=== PATIENT | female | born 1980 | race Two or more races ===

== ENCOUNTER 2020-09-01 10:05 | Observation (INO) | payer MEDICAID, OTHER ==
[2020-09-01] MEDS ORDERED: PYRI1TAB10 PO (11:24)
[2020-09-01] MEDS ORDERED: PREN-96 PO (11:24)
[2020-09-01] MEDS ORDERED: FERR-20 PO (11:24)
[2020-09-01] MEDS ORDERED: CYA100I PO (11:24)
[2020-09-01] MEDS ORDERED: FOLI1TAB6 PO (11:24)
[2020-09-01] MEDS ORDERED: CHOL400C15 PO (11:24)
== END 2020-09-01 11:20 | disposition home or self-care (01) ==
LOC: LDRP 10:05
PROVIDERS: ADMIT Specialist; ATTEND Specialist
DX: O26.852 Spotting complicating pregnancy, second trimester (principal); Z3A.20 20 weeks gestation of pregnancy
CPT/HCPCS: 59025; 81002; G0378

== ENCOUNTER 2020-09-26 19:38 | Observation (INO) | payer MEDICAID ==
[~2020-09-26 19:38] MED LIST: CHOL400C15 PO; CYA100I PO; FERR-20 PO; FOLI1TAB6 PO; PREN-96 PO; PYRI1TAB10 PO
== END 2020-09-26 20:52 | disposition home or self-care (01) ==
LOC: UNDOADMOB 19:38 → LDRP 19:38 → UNDODISOB 20:52
PROVIDERS: ADMIT Obstetrics & Gynecology; ATTEND Obstetrics & Gynecology
DX: O99.893 Other specified diseases and conditions complicating puerperium (principal); M54.9 Dorsalgia, unspecified; O46.93 Antepartum hemorrhage, unspecified, third trimester; O26.893 Other specified pregnancy related conditions, third trimester; R51.9 Headache, unspecified; Z3A.24 24 weeks gestation of pregnancy
CPT/HCPCS: 59025; 76815; 81002; G0378

== ENCOUNTER 2020-11-16 18:43 | Observation (INO) | payer MEDICAID ==
[~2020-11-16] VITALS: Ht 198.1 cm; Wt 81.6 kg
[2020-11-16] MEDS ORDERED: LACTATED RINGER'S 1,000 ML IV ONE (22:18)
[2020-11-16] MEDS ORDERED: TERBUTALINE SULFATE 1 MG/ML 1ML VIAL SC ONE (22:20)
[2020-11-18] MEDS ORDERED: NIF10C PO ×2 (09:28)
== END 2020-11-17 00:02 | disposition home or self-care (01) ==
LOC: LDRP 18:43
PROVIDERS: ADMIT Obstetrics & Gynecology; ATTEND Obstetrics & Gynecology
DX: O62.9 Abnormality of forces of labor, unspecified (principal); O26.893 Other specified pregnancy related conditions, third trimester; N89.8 Other specified noninflammatory disorders of vagina; O21.2 Late vomiting of pregnancy; Z3A.31 31 weeks gestation of pregnancy
CPT/HCPCS: 59025; 76805; 81002; 96360; 96372; G0378; J3105; 96365

== ENCOUNTER 2020-11-18 07:55 | Observation (INO) | payer MEDICAID ==
[2020-11-18] MEDS ORDERED: NIFEdipine 10 MG CAP PO ONE (09:00)
[2020-11-18] MEDS ORDERED: NIF10C PO ×2 (09:28)
== END 2020-11-18 09:40 | disposition home or self-care (01) ==
LOC: LDRP 07:55
PROVIDERS: ADMIT Specialist; ATTEND Specialist
DX: O60.03 Preterm labor without delivery, third trimester (principal); Z3A.31 31 weeks gestation of pregnancy
CPT/HCPCS: 59025; 81002; G0378

== ENCOUNTER 2020-11-20 08:50 | Observation (INO) | payer MEDICAID ==
[~2020-11-20] VITALS: Ht 167.6 cm; Wt 81.6 kg
[~2020-11-20 08:50] MED LIST changes: +NIF10C PO
== END 2020-11-20 09:50 | disposition home or self-care (01) ==
LOC: LDRP 08:50
PROVIDERS: ADMIT Specialist; ATTEND Specialist
DX: O60.03 Preterm labor without delivery, third trimester (principal); O09.523 Supervision of elderly multigravida, third trimester; O26.893 Other specified pregnancy related conditions, third trimester; R51.9 Headache, unspecified; R11.0 Nausea; Z3A.32 32 weeks gestation of pregnancy
CPT/HCPCS: 59025; 81002; G0378

== ENCOUNTER 2020-11-25 07:55 | Observation (INO) | payer MEDICAID ==
[~2020-11-25] VITALS: Ht 167.6 cm; Wt 81.6 kg
[2020-11-25] MEDS ORDERED: NIFEdipine 10 MG CAP ONE (08:34)
[2020-11-25] MEDS ORDERED: NIFEdipine 10 MG CAP PO ONE ×2 (08:45→09:10)
== END 2020-11-25 08:55 | disposition home or self-care (01) ==
LOC: UNDOADMOB 07:55 → LDRP 07:55 → UNDODISOB 08:55
PROVIDERS: ADMIT Obstetrics & Gynecology; ATTEND Obstetrics & Gynecology
DX: O60.03 Preterm labor without delivery, third trimester (principal); Z3A.32 32 weeks gestation of pregnancy
CPT/HCPCS: 59025; 81002; G0378

== ENCOUNTER 2020-11-29 08:24 | Observation (INO) | payer MEDICAID | END 2020-11-29 09:50 | disposition home or self-care (01) | LOC: LDRP 08:24 | PROVIDERS: ADMIT Obstetrics & Gynecology; ATTEND Obstetrics & Gynecology | DX: O60.03 Preterm labor without delivery, third trimester (principal); Z3A.33 33 weeks gestation of pregnancy | CPT/HCPCS: 59025; 76818; 81002; G0378 ==

== ENCOUNTER 2020-12-08 10:04 | Observation (INO) | payer MEDICAID ==
[2020-12-08] MEDS ORDERED: LEVO50TA7 PO (11:20)
== END 2020-12-08 11:35 | disposition home or self-care (01) ==
LOC: LDRP 10:04
PROVIDERS: ADMIT Obstetrics & Gynecology; ATTEND Obstetrics & Gynecology
DX: O60.03 Preterm labor without delivery, third trimester (principal); Z3A.34 34 weeks gestation of pregnancy
CPT/HCPCS: 59025; 76818; 81002; G0378

== ENCOUNTER 2020-12-11 08:00 | Observation (INO) | payer MEDICAID ==
[~2020-12-11] VITALS: Ht 167.6 cm; Wt 81.6 kg
[~2020-12-11 08:00] MED LIST changes: -FERR-20 PO; +LEVO50TA7 PO; -PYRI1TAB10 PO
== END 2020-12-11 10:45 | disposition home or self-care (01) ==
LOC: LDRP 08:00
PROVIDERS: ADMIT Obstetrics & Gynecology; ATTEND Obstetrics & Gynecology
DX: O60.03 Preterm labor without delivery, third trimester (principal); O26.893 Other specified pregnancy related conditions, third trimester; E03.9 Hypothyroidism, unspecified; Z3A.34 34 weeks gestation of pregnancy
CPT/HCPCS: 59025; 76818; 81002; G0378

== ENCOUNTER 2020-12-16 08:25 | Observation (INO) | payer MEDICAID | END 2020-12-16 10:00 | disposition home or self-care (01) | LOC: LDRP 08:25 | PROVIDERS: ADMIT Specialist; ATTEND Specialist | DX: O99.283 Endocrine, nutritional and metabolic diseases complicating pregnancy, third trimester (principal); E03.9 Hypothyroidism, unspecified; O36.5930 Maternal care for other known or suspected poor fetal growth, third trimester, not applicable or unspecified; O09.523 Supervision of elderly multigravida, third trimester; O60.03 Preterm labor without delivery, third trimester; Z3A.35 35 weeks gestation of pregnancy | CPT/HCPCS: 59025; 76818; 81002; G0378 ==

== ENCOUNTER 2020-12-20 07:53 | Observation (INO) | payer MEDICAID | END 2020-12-20 09:32 | disposition home or self-care (01) | LOC: LDRP 07:53 | PROVIDERS: ADMIT Specialist; ATTEND Specialist | DX: O99.283 Endocrine, nutritional and metabolic diseases complicating pregnancy, third trimester (principal); E03.9 Hypothyroidism, unspecified; O60.03 Preterm labor without delivery, third trimester; O09.523 Supervision of elderly multigravida, third trimester; Z3A.36 36 weeks gestation of pregnancy | CPT/HCPCS: 59025; 76818; 81002; G0378 ==

== ENCOUNTER 2020-12-23 09:05 | Observation (INO) | payer MEDICAID | END 2020-12-23 10:59 | disposition home or self-care (01) | LOC: LDRP 09:05 | PROVIDERS: ADMIT Obstetrics & Gynecology; ATTEND Obstetrics & Gynecology | DX: O60.03 Preterm labor without delivery, third trimester (principal); O09.523 Supervision of elderly multigravida, third trimester; O99.283 Endocrine, nutritional and metabolic diseases complicating pregnancy, third trimester; E03.9 Hypothyroidism, unspecified; Z79.899 Other long term (current) drug therapy | CPT/HCPCS: 59025; 76818; 81002; G0378 ==

== ENCOUNTER 2020-12-26 08:23 | Observation (INO) | payer MEDICAID | END 2020-12-26 09:50 | disposition home or self-care (01) | LOC: LDRP 08:23 | PROVIDERS: ADMIT Specialist; ATTEND Specialist | DX: O99.283 Endocrine, nutritional and metabolic diseases complicating pregnancy, third trimester (principal); O09.523 Supervision of elderly multigravida, third trimester; E03.9 Hypothyroidism, unspecified; Z3A.37 37 weeks gestation of pregnancy | CPT/HCPCS: 59025; 76818; 81002; 84112; G0378; Q0114 ==

== ENCOUNTER 2021-01-02 09:00 | Observation (INO) | payer MEDICAID ==
[~2021-01-02 09:00] MED LIST changes: -NIF10C PO
== END 2021-01-02 11:06 | disposition home or self-care (01) ==
LOC: LDRP 09:00
PROVIDERS: ADMIT Obstetrics & Gynecology; ATTEND Obstetrics & Gynecology
DX: O99.283 Endocrine, nutritional and metabolic diseases complicating pregnancy, third trimester (principal); E03.9 Hypothyroidism, unspecified; O60.03 Preterm labor without delivery, third trimester; Z3A.38 38 weeks gestation of pregnancy
CPT/HCPCS: 59025; 76818; 81002; G0378

== ENCOUNTER 2021-01-06 08:56 | Observation (INO) | payer MEDICAID ==
[~2021-01-06] VITALS: Ht 167.6 cm; Wt 87.1 kg
== END 2021-01-06 11:22 | disposition home or self-care (01) ==
LOC: LDRP 08:56
PROVIDERS: ADMIT Obstetrics & Gynecology; ATTEND Obstetrics & Gynecology
DX: O99.283 Endocrine, nutritional and metabolic diseases complicating pregnancy, third trimester (principal); E03.9 Hypothyroidism, unspecified; O09.513 Supervision of elderly primigravida, third trimester; O26.893 Other specified pregnancy related conditions, third trimester; R51.9 Headache, unspecified; R19.7 Diarrhea, unspecified; R11.0 Nausea; Z3A.38 38 weeks gestation of pregnancy; Z79.899 Other long term (current) drug therapy
CPT/HCPCS: 59025; 76818; 81002; G0378

== ENCOUNTER 2021-01-07 08:27 | Observation (INO) | payer MEDICAID | END 2021-01-07 10:41 | disposition home or self-care (01) | LOC: LDRP 08:27 | PROVIDERS: ADMIT Specialist; ATTEND Specialist | DX: O99.283 Endocrine, nutritional and metabolic diseases complicating pregnancy, third trimester (principal); E03.9 Hypothyroidism, unspecified; O62.9 Abnormality of forces of labor, unspecified; Z3A.38 38 weeks gestation of pregnancy | CPT/HCPCS: 59025; 76818; 81002; 84112; G0378; Q0114 ==

== ENCOUNTER 2021-01-11 08:40 | Observation (INO) | payer MEDICAID ==
[~2021-01-11] VITALS: Ht 170.2 cm; Wt 83.9 kg
== END 2021-01-11 10:00 | disposition home or self-care (01) ==
LOC: LDRP 08:40
PROVIDERS: ADMIT Specialist; ATTEND Specialist
DX: O09.523 Supervision of elderly multigravida, third trimester (principal); O99.283 Endocrine, nutritional and metabolic diseases complicating pregnancy, third trimester; E03.9 Hypothyroidism, unspecified; O62.9 Abnormality of forces of labor, unspecified; O26.893 Other specified pregnancy related conditions, third trimester; R10.30 Lower abdominal pain, unspecified; Z3A.39 39 weeks gestation of pregnancy
CPT/HCPCS: 59025; 76818; 81002; G0378

== ENCOUNTER 2021-01-14 04:48 | Inpatient (IN) | payer MEDICAID ==
[~2021-01-14] VITALS: Ht 167.6 cm; Wt 83.0 kg
[2021-01-14] MEDS ORDERED: LACT. RINGERS/OXYTOCIN 20UNITS 1,000 ML IV ONE ×3 (05:00→23:00)
[2021-01-14] MEDS ORDERED: miSOPROStol 50 MCG per PRE-CUT 1/2 TAB PO PRN (05:00)
[2021-01-14] MEDS ORDERED: LIDOCAINE 2%HCL (LOCAL ANESTH.) INJ 20ML MDV IJ ONE (05:00)
[2021-01-14 06:00] LABS: Basophils # (auto) 0.1 10 ^3/uL (0-0.2); Basophils % (auto) 0.8 % (0.0-2.0); Eosinophils # (auto) 0.3 10 ^3/uL (0-0.8); Hematocrit 37.3 % (36.0-46.0); Hemoglobin 12.9 g/dL (12.2-16.2); Lymphocytes # (auto) 1.2 10 ^3/uL (0.4-5.4); Lymphocytes % (auto) 18.4 % (10.0-50.0); Mean Corpuscular Hemoglobin 30.4 pg (28.0-32.0); Mean Corpuscular Hgb Conc. 34.5 g/dL (32.0-36.0); Mean Corpuscular Volume 88.1 fL (80.0-100.0); Monocytes # (auto) 0.7 10 ^3/uL (0-1.3); Monocytes % (auto) 11.3 % (0.0-12.0); Neutrophils # (auto) 4.3 10 ^3/uL (1.6-8.6); Neutrophils % (auto) 65.5 % (37.0-80.0); Nucleated Red Blood Cells % 0.1 %; Platelet Count (auto) 170 10^3/uL (140-450); Red Blood Cells 4.23 10^6/uL (4.0-5.20); Red Cell Distribution Width 13.7 % (11.8-14.3); White Blood Cell 6.6 10^3/uL (4.4-10.8)
[2021-01-14] MEDS: LACTATED RINGER'S 1,000 ML IV SCH ×2 (06:02→12:34)
[2021-01-14 06:09] LABS: Albumin 2.6 g/dL (3.4-5.0); BUN/Creatinine Ratio 19.6; Calcium 8.4 mg/dL (8.5-10.1); Potassium 3.5 mmol/L (3.5-5.1)
[2021-01-14 06:11] LABS: Alcohol, Urine < 3.0 mg/dL (0-10); Amphetamine Screen, Urine NEGATIVE (NEGATIVE); Barbiturate Scree,Urine NEGATIVE (NEGATIVE); Benzodiazephine Screen, Urine NEGATIVE (NEGATIVE); Cannabinoid Screen, Urine NEGATIVE (NEGATIVE); Cocaine Screen, Urine NEGATIVE (NEGATIVE); Opiate Scree,Urine NEGATIVE (NEGATIVE); Phencyclidine Screen, Urine NEGATIVE (NEGATIVE)
[2021-01-14 06:22] LABS: INR 0.97 (0.9-1.15); Partial Thromboplastin Time 26.8 sec (23.0-31.2)
[2021-01-14 06:23] LABS: Bilirubin, Total 0.3 mg/dL (0.2-1.0); Total Protein 6.6 g/dL (6.4-8.2)
[2021-01-14 06:28] LABS: Urine Bacteria FEW /hpf (None Seen); Urine Blood Negative /uL (Negative); Urine Mucus FEW (None Seen); Urine WBC 67 /hpf (0 - 5)
[2021-01-14] MEDS ORDERED: miSOPROStol 100 mcg TAB PR PRN (09:00)
[2021-01-14] MEDS ORDERED: CARBOPROST TROMETHAMINE 250 MCG/1ML VIAL IM PRN (09:00)
[2021-01-14] MEDS ORDERED: miSOPROStol 100 mcg TAB SL PRN (09:00)
[2021-01-14] MEDS ORDERED: METHYLERGONOVINE MALEATE 0.2 MG/ML AMP IM PRN (09:00)
[2021-01-14] MEDS ORDERED: DIPHENOXYLATE W/ATROPINE 2.5 MG TAB PO SCH (10:00)
[2021-01-14] MEDS ORDERED: TERBUTALINE SULFATE 1 MG/ML 1ML VIAL SC ONE (10:45)
[2021-01-14] MEDS ORDERED: LACT. RINGERS/OXYTOCIN 20UNITS 1,000 ML IV SCH (10:45)
[2021-01-14] MEDS: DERMOPLAST 60ML BOTTLE TOP PRN ×2 (10:49→21:06)
[2021-01-14] MEDS: PHISODERM TOP SOLN 240ML BTL TOP PRN ×2 (10:49→21:05)
[2021-01-14] MEDS: WITCH HAZEL-GLYCERIN PAD TOP PRN ×2 (10:49→21:05)
[2021-01-14] MEDS ORDERED: ACETAMINOPHEN 325 MG TAB PO PRN (23:00)
[2021-01-14] MEDS: IBUPROFEN 600 MG TAB PO PRN (23:31)
[2021-01-15 02:50] VITALS: BP 95/58
[2021-01-15 06:50] VITALS: BP 101/63
[2021-01-15] MEDS: IBUPROFEN 600 MG TAB PO PRN ×2 (08:48→22:44)
[2021-01-15 11:00] VITALS: BP 106/63
[2021-01-15 15:20] VITALS: BP 115/58
[2021-01-15 19:05] VITALS: BP 98/53
[2021-01-15 23:00] VITALS: BP 105/59
[2021-01-16 03:00] VITALS: BP 97/58
[2021-01-16] MEDS: IBUPROFEN 600 MG TAB PO PRN ×2 (07:08→12:27)
[2021-01-16 07:30] VITALS: BP 98/59
[2021-01-16 08:06] LABS: RPR Non Reactive (Non Reactive)
[2021-01-16 11:20] VITALS: BP 90/54
== END 2021-01-16 13:12 | disposition home or self-care (01) | DRG 560 ==
LOC: LDRP 04:48
PROVIDERS: ADMIT Specialist; ATTEND Specialist
PROC: 10E0XZZ Delivery of Products of Conception, External Approach (ICD-10-PCS; principal; 2021-01-14)
PROC: 0HQ9XZZ Repair Perineum Skin, External Approach (ICD-10-PCS; 2021-01-14)
DX: O66.0 Obstructed labor due to shoulder dystocia (principal); O99.284 Endocrine, nutritional and metabolic diseases complicating childbirth; Z20.822 Contact with and (suspected) exposure to COVID-19; O70.0 First degree perineal laceration during delivery; Z3A.39 39 weeks gestation of pregnancy; Z37.0 Single live birth; E03.9 Hypothyroidism, unspecified
CPT/HCPCS: 36415; 59025; 59409; 80053; 80307; 81001; 85025; 85610; 85730; 86592; 86850; 86900; 86901; 87426; 96360; 96361; 96365; 96366; G0378; J2590

== ENCOUNTER 2025-05-07 11:13 | Emergency (ER) | payer SELFPAY ==
[~2025-05-07] VITALS: Ht 167.6 cm; Wt 66.3 kg
[~2025-05-07 11:13] MED LIST changes: -CHOL400C15 PO; -CYA100I PO; -FOLI1TAB6 PO; -PREN-96 PO
--- NOTE | 2025-05-07 11:44 | ED.PDOC ---
HPI (NEURO) HPI Comments This is a 45 year old female presenting to the ED with chief complaint of left sided weakness. Patient reports that her father recently and was buried 2 days ago. Patient relays that she started to experiencing bilateral numbness and weakness since 12pm yesterday, but her right side resolved, leaving only the left numb and weak. Patient states that she is unable to walk on her own and cannot lift up her left arm due to the weakness. Patient denies any N/V/D, headache, syncope, chest pain, SOB, or blurred vision. Time Seen by MD: 11:36 Reviewed Notes: Nurses Notes, Medications, Allergies Information Source: Patient Mode of Arrival: Ambulatory Severity: Moderate Dizziness/Weakness Severity: Unable to do activities Timing: Hours Duration: Since onset Prehospital treatment: None Weakness Location: (L) Sided Numbness Location: (L) Sided Onset: At rest Circumstances: Recent stress Symptoms: Weakness, Numbness Past Medical History PAST MEDICAL HISTORY: Thyroid Surgical History: Denies all surgeries OIL BURNER MECHANIC History: No Pertinent OIL BURNER MECHANIC History Family History Family History: Reviewed,noncontributory to illness Social History Smoker: Non-Smoker Alcohol: Denies ETOH Use Drugs: Denies Drug Use Lives In: Home Constitutional: denies: chills, diaphoresis, fatigue, fever, malaise, sweats, weakness, others EENTM: denies: blurred vision, double vision, ear bleeding, ear discharge, ear drainage, ear pain, ear ringing, eye pain, eye redness, hearing loss, mouth pain, mouth swelling, nasal discharge, nose bleeding, nose congestion, nose pain , photophobia, tearing, throat pain, throat swelling, voice changes, others Respiratory: denies: cough, hemoptysis, orthopnea, SOB at rest, shortness of breath, SOB with excertion, stridor, wheezing, others Cardiovascular: denies: chest pain, dizzy spells, diaphoresis, Dyspnea on exertion, edema, irregular heart beat, left arm pain, lightheadedness, palpitations, PND, syncope, others Gastrointestinal: denies: abdomen distended, abdominal pain, blood streaked bowels, constipated, diarrhea, dysphagia, difficulty swallowing, hematemesis, melena, nausea, poor appetite, poor fluid intake, rectal bleeding, rectal pain, vomiting, others Genitourinary: denies: abnormal vagina bleeding, burning, dyspareunia, dysuria, flank pain, frequency, hematuria, incontinence, pain, , vagina discharge, urgency, others Neurological: reports: left sided numbness, left sided weakness; denies: dizziness, fainting, headache, numbness, paresthesia, pre-existing deficit, right sided numbness, right sided weakness, seizure, speech problems, tingling, tremors, weakness, others Musculoskeletal: denies: back pain, gout, joint pain, joint swelling, muscle pain, muscle stiffness, neck pain, others Integumetry: denies: bruises, change in color, change in hair/nails, dryness, laceration, lesions, lumps, rash, wounds, others Allergic/Immunocompromised: denies: Difficulty Healing, Frequent Infections, Hives, Itching, others Hematologic/Lymphatic: denies: anemia, blood clots, easy bleeding, easy bruising, swollen glands, others Endocrine: denies: excessive hunger, excessive sweating, excessive thirst, excessive urination, flushing, intolerance to cold, intolerance to heat, unexplained weight gain, unexplained weight loss, others Psychiatric: denies: anxiety, bipolar disorder, depression, hopeless, panic disorder, schizophrenia, sleepless, suicidal, others All Other Systems: Reviewed and Negative Physical Exam General Appearance: No Apparent Distress, Normal HEENT: Normal ENT Inspection, Pharynx Normal, TMs Normal Neck: Full Range of Motion, Non-Tender, Normal, Normal Inspection Respiratory: Chest Non-Tender, Lungs Clear, No Accessory Muscle Use, No Respiratory Distress, Normal Breath Sounds Cardiovascular: No Edema, No Murmur, No Gallop, Normal Peripheral Pulses, Regular Rate/Rhythm Breast Exam: Deferred Gastrointestinal: No Organomegaly, Non Tender, No Pulsatile Mass, Normal Bowel Sounds, Soft Genitalia: Deferred Pelvic: Deferred Rectal: Deferred Extremities: No calf tenderness, Normal capillary refill, Normal inspection, Normal range of motion, Non-tender, No pedal edema Musculoskeletal : Apperance: Normal Neurologic: Alert, carpet measurer II-XII nml as Tested, No Motor Deficits, Normal Affect, Normal Mood, No Sensory Deficits, Other (Drop test noted avoidance of the top of her head and arm comfortably landing in lap.) Cerebellar Function: NOT DONE Reflexes: NOT DONE Skin: Dry, Normal Color, Warm Lymphatic: NOT DONE Was a procedure done? Was a procedure done?: No X-Ray, Labs, Meds, VS Vital Signs Date Time Temp Pulse Resp B/P (MAP) Pulse Ox O2 Delivery O2 Flow Rate FiO2 05/07/25 11:27 98.2 122 20 125/88 (100) 98 98.2 Lab Test 05/07/25 11:57 05/07/25 11:56 05/07/25 11:35 05/07/25 11:31 Range/Units Urine Opiates Screen Neg NEGATIVE Urine Fentanyl Screen Neg NEGATIVE Urine Barbiturates Screen Neg NEGATIVE Urine Phencyclidine Screen Neg NEGATIVE Urine Amphetamines Screen Neg NEGATIVE Urine Benzodiazepines Screen Neg NEGATIVE Urine Cocaine Screen Neg NEGATIVE Urine Cannabinoids Screen Neg NEGATIVE White Blood Count 5.3 4.4-10.8 10^3/uL Red Blood Count 4.88 4.0-5.20 10^6/uL Hemoglobin 14.7 12.2-16.2 g/dL Hematocrit 43.5 36.0-46.0 % Mean Corpuscular Volume 89.1 80.0-100.0 fL Mean Corpuscular Hemoglobin 30.2 28.0-32.0 pg Mean Corpuscular Hemoglobin Concent 33.9 32.0-36.0 g/dL Red Cell Distribution Width 16.6 H 11.8-14.3 % Platelet Count 331 140-450 10^3/uL Mean Platelet Volume 8.2 6.9-10.8 fL Neutrophils (%) (Auto) 51.9 37.0-80.0 % Lymphocytes (%) (Auto) 32.9 10.0-50.0 % Monocytes (%) (Auto) 7.6 0.0-12.0 % Eosinophils (%) (Auto) 6.4 0.0-7.0 % Basophils (%) (Auto) 1.2 0.0-2.0 % Neutrophils # (Auto) 2.7 1.6-8.6 10 ^3/uL Lymphocytes # (Auto) 1.7 0.4-5.4 10 ^3/uL Monocytes # (Auto) 0.4 0-1.3 10 ^3/uL Eosinophils # (Auto) 0.3 0-0.8 10 ^3/uL Basophils # (Auto) 0.1 0-0.2 10 ^3/uL Nucleated Red Blood Cells 0.2 % Sodium Level 141 136-145 mmol/L Potassium Level 3.6 3.5-5.1 mmol/L Chloride Level 107 98-107 mmol/L Carbon Dioxide Level 22 20-31 mmol/L Anion Gap 12 5-15 Blood Urea Nitrogen 9 9-23 mg/dL Creatinine 0.68 0.550-1.02 mg/dL Glomerular Filtration Rate Calc 109 >90 mL/min BUN/Creatinine Ratio 13.2 10.0-20.0 Serum Glucose 78 74-106 mg/dL Calcium Level 9.3 8.7-10.4 mg/dL Total Bilirubin 0.4 0.2-1.0 mg/dL Aspartate Amino Transferase (AST) 20 13-40 U/L Alanine Aminotransferase (ALT) 13 7-40 U/L Alkaline Phosphatase 65 46-116 U/L Total Protein 6.7 5.7-8.2 g/dL Albumin 4.4 3.2-4.8 g/dL Thyroid Stimulating Hormone (TSH) 1.86 0.55-4.78 uIU/mL Beta HCG, Quantitative 0.4 L 1.5-4.2 mIU/mL Plasma/Serum Blood Alcohol 129.2 H <10 mg/dL Urine Color Light-yellow Yellow Urine Clarity Clear Clear Urine pH 5.0 5.0-9.0 Urine Specific [place] 1.013 1.001-1.035 Urine Protein Negative Negative Urine Ketones Negative Negative Urine Blood Negative Negative /uL Urine Nitrite Negative Negative Urine Bilirubin Negative Negative Urine Urobilinogen Normal Negative mg/dL Urine Leukocyte Esterase Negative Negative /uL Urine RBC <1 0 - 4 /hpf Urine Microscopic WBC 2 0-5 /HPF Urine Squamous Epithelial Cells Few <5 /hpf Urine Bacteria None seen None Seen /hpf Urine Glucose Normal Normal mg/dL POC Glucose 91 70-106 mg/dl Current Medications Medications (Trade) Dose Ordered Sig/Jenn Route Start Time Stop Time Status Last Admin Lorazepam (Ativan Inj) 1 mg ONCE ONCE IV 05/07/25 11:45 05/07/25 11:46 DC 05/07/25 11:55 X-Ray, Labs, Meds, VS Comment This 45-year-old female presents secondary to quit left-sided weakness. And she had facial symmetry. She is completely cognitively intact. During the drop test, the patient fail to hit her head, face and had her hand landing generally in her lab. The patient had intact sensation. She was given Ativan. Upon reassessment, her symptoms have resolved. As such, I believe her symptoms secondary to a stress reaction. I will discharge the patient with a vacation for Ativan. She is asked to follow up with the PCP in next 1 2 days return to the ER for new/worse/worsening symptoms. Additionally, she may consider relaxation techniques and other methods to help cope with her recent stressful event. Time of 1ST Reevaluation: 12:36 Reevaluation 1ST: Unchanged Patient Education/Counseling: Diagnosis, Treatment Family Education/Counseling: Diagnosis, Treatment Departure 1 Departure Time of Disposition: 14:42 Impression: Primary Impression: Anxiety Additional Impression: Stress reaction Disposition: 01 HOME / SELF CARE / HOMELESS Condition: Good Discharged With: Self, Spouse Critical Care Note Critical Care Time?: No Stability Stability form required: No Heart Score Heart Score: Heart Score Response (Comments) Value History N/A 0 EKG N/A 0 Age N/A 0 Risk Factors N/A 0 Troponin N/A 0 Total 0 I personally scribed for LATRICE CAMARA MD ([email or web address]) on 05/07/25 at 11:44. Electronically submitted by Efra Leung ([email or web address]). I personally scribed for LATRICE CAMARA MD ([email or web address]) on 05/07/25 at 11:45. Electronically submitted by Efra Leung ([email or web address]). LATRICE CAMARA MD May 07, 2025 11:44
[2025-05-07] MEDS: LORazepam 2MG/ML-1ML VIAL IV ONE (11:55)
[2025-05-07 12:18] LABS: Hematocrit 43.5 % (36.0-46.0); Hemoglobin 14.7 g/dL (12.2-16.2); Mean Corpuscular Hemoglobin 30.2 pg (28.0-32.0); Mean Corpuscular Volume 89.1 fL (80.0-100.0); Nucleated Red Blood Cells % 0.2 %
[2025-05-07 12:20] LABS: Urine Protein, UAD Negative (Negative)
[2025-05-07 12:39] LABS: Amphetamine Screen, Urine Neg (NEGATIVE); Barbiturate Scree,Urine Neg (NEGATIVE); Benzodiazephine Screen, Urine Neg (NEGATIVE); Cannabinoid Screen, Urine Neg (NEGATIVE); Cocaine Screen, Urine Neg (NEGATIVE); Opiate Scree,Urine Neg (NEGATIVE); Phencyclidine Screen, Urine Neg (NEGATIVE)
[2025-05-07 12:41] LABS: Alanine Aminotransferase 13 U/L (7-40); Albumin 4.4 g/dL (3.2-4.8); Alkaline Phosphatase 65 U/L (46-116); Anion Gap 12 (5-15); BUN/Creatinine Ratio 13.2 (10.0-20.0); Calcium 9.3 mg/dL (8.7-10.4); Carbon Dioxide 22 mmol/L (20-31); Chloride 107 mmol/L (98-107); Glucose 78 mg/dL (74-106); Potassium 3.6 mmol/L (3.5-5.1); Sodium 141 mmol/L (136-145); Total Protein 6.7 g/dL (5.7-8.2)
[2025-05-07 12:42] LABS: Bilirubin, Total 0.4 mg/dL (0.2-1.0)
[2025-05-07 12:44] LABS: Beta HCG, Quantitative 0.4 mIU/mL (1.5-4.2); Blood Urea Nitrogen 9 mg/dL (9-23); Thyroid Stimulating Hormone 1.86 uIU/mL (0.55-4.78)
[2025-05-07] MEDS ORDERED: HYDR50CA2 PO (14:43)
[2025-05-07] MEDS ORDERED: LORA-655 PO (14:43)
[2025-05-07 14:51] VITALS: BP 106/71; PULSE 103; RESP 20; TEMP 97.9; O2SAT 98
== END 2025-05-07 14:56 | disposition home or self-care (01) ==
LOC: ER 11:13
DX: F41.9 Anxiety disorder, unspecified (principal); F43.9 Reaction to severe stress, unspecified; Z79.899 Other long term (current) drug therapy
CPT/HCPCS: 36415; 80053; 80307; 80320; 81001; 82947; 84443; 84702; 85025; 96374; 99283; J2060; 82962

== ENCOUNTER 2025-07-16 02:29 | Emergency (ER) | payer MEDICAID ==
[~2025-07-16] VITALS: Ht 167.6 cm; Wt 65.1 kg
[~2025-07-16 02:29] MED LIST changes: +HYDR50CA2 PO
[2025-07-16 04:35] VITALS: BP 121/78; TEMP 98.6
[2025-07-16] MEDS: KETOROLAC TROMETH 60MG/2ML VIAL IM ONE (04:38)
[2025-07-16] MEDS: HYDROcodone-ACET 5/325MG TAB PO ONE (04:38)
--- NOTE | 2025-07-16 04:41 | ED.PDOC ---
Back pain HPI HPI Comments PT PRESENTED TO ED FOR FALL INJURY X1 WEEK AGO. 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 PT STATED WORSENING BACK PAIN. (+) PAIN ON INSPIRATION. (-) LOC. DENIES NUMBNESS, WEAKNESS, SADDLE ANESTHESIA, LOSS OF BOWEL BLADDER CONTROL. GCS-15, ALL VSS. Chief Complaint: Fall Injury Time Seen by MD: 02:44 Reviewed Notes: Nurses Notes, Medications, Allergies Allergies: Coded Allergies: NO KNOWN ALLERGIES (Unverified , 01/07/21) Home Meds Active Scripts Hydroxyzine Pamoate (Hydroxyzine Pamoate) 50 Mg Cap, 1 CAP PO TID PRN, #90 CAP 1 Refill Prov:LATRICE CAMARA MD 05/07/25 Reported Medications Levothyroxine Sodium (Levothyroxine Sodium) 50 Mcg Tab, 50 MCG PO QAM for PT for 30 Days, MCG 12/08/20 Information Source: Patient Mode of Arrival: Ambulatory Past Medical History PAST MEDICAL HISTORY: Thyroid Surgical History: Denies all surgeries SHIPMASTER History: No Pertinent SHIPMASTER History Family History Family History: Reviewed,noncontributory to illness Social History Smoker: Non-Smoker Alcohol: Denies ETOH Use Drugs: Denies Drug Use Lives In: Home All Other Systems: Reviewed and Negative (SEE HPI) Physical Exam General Appearance: No Apparent Distress, Normal HEENT: Pharynx Normal Neck: Full Range of Motion, Non-Tender Respiratory: Lungs Clear, No Respiratory Distress, Normal Breath Sounds Cardiovascular: No Murmur, Normal Peripheral Pulses, Regular Rate/Rhythm Breast Exam: Deferred Gastrointestinal: Non Tender, Soft Genitalia: Deferred Pelvic: Deferred Rectal: Deferred Extremities: Normal capillary refill, Normal range of motion Musculoskeletal : Location: Left Extremity Location: Back (MODERATE TENDERNESS ON PALPATION LEFT LOWER BACK MUSCULATURE TENDERNESS ALONG L1 THROUGH L4 SPINE NO NOTED CREPITUS OR STEP-OFFS STRENGTH SENSORY MOTION INTACT NEGATIVE STRAIGHT LEG RAISE BILATERAL POSITIVE PEDAL PULSES NO NOTED GROSS EXTERNAL TRAUMA) Apperance: Normal Neurologic: Alert, No Motor Deficits, Normal Affect, Normal Mood, No Sensory Deficits Cerebellar Function: Normal Reflexes: Normal Skin: Dry, Normal Color, Warm Lymphatic: No Adenopathy Was a procedure done? Was a procedure done?: No Back Pain Differential Dx Differential Diagnosis: Fracture, Musculoskeletal Pain X-Ray, Labs, Meds, VS Vital Signs Date Time Temp Pulse Resp B/P (MAP) Pulse Ox O2 Delivery O2 Flow Rate FiO2 07/16/25 04:35 98.6 66 16 121/78 (92) 100 98.6 07/16/25 02:39 98.4 74 16 123/73 98 98.4 Current Medications Medications (Trade) Dose Ordered Sig/Jenn Route Start Time Stop Time Status Last Admin Acetaminophen/ Hydrocodone Bitart ([place] 5/325MG Tab) 1 tab ONCE ONCE PO 07/16/25 04:15 07/16/25 04:16 DC 07/16/25 04:38 Dexamethasone Sodium Phosphate (Decadron Injection) 10 mg ONCE ONCE IM 07/16/25 04:15 07/16/25 04:16 DC 07/16/25 04:38 Ketorolac Tromethamine (Toradol Injection) 60 mg ONCE ONCE IM 07/16/25 04:15 07/16/25 04:16 DC 07/16/25 04:38 X-Ray, Labs, Meds, VS Comment FINDINGS: Trace levoscoliosis has its apex about the L1-L2 interspace. The lumbar vertebral alignment is otherwise normal. The intervertebral disc spaces are well-maintained. No significant facet arthropathy is noted. No acute fracture, vertebral compression deformity or aggressive osseous lesions. Small chronic appearing well corticated fracture fragment of the anterior inferior L3 vertebral body endplate. The paravertebral soft tissues are grossly unremarkable. IMPRESSION: 1. No acute fracture. PATIENT GIVEN TORADOL 60 MG IM, DECADRON 10 MG IM, AND NORCO 5 MG P.O.. REPORTS IMPROVEMENT IN PAIN AND FUNCTION REQUESTING DISCHARGE AT THIS TIME. LUMBAR SPINE X-RAY SHOWS NO ACUTE FRACTURES OSSEOUS LESIONS OR SUBLUXATIONS. WE WILL SCRIPT TRIAL OF MEDROL DOSEPAK AND MUSCLE RELAXER ADVISED TAKE MEDICATION PRESCRIBED SIDE EFFECTS DISCUSSED. ADVISED TO ALTERNATE BETWEEN ICE AND HEAT. ADVISED TO FOLLOW UP WITH HER PCP IN 2-3 DAYS NECESSARY CONSIDER FURTHER IMAGING SUCH MRI IF SYMPTOMS PERSIST. ER RETURN PRECAUTIONS GIVEN PATIENT INDICATES UNDERSTANDING AND AGREES WITH DISCHARGE PLAN OF CARE. RETURN TO THE ER FOR INCREASING PAIN NUMBNESS, WEAKNESS, LOSS OF BOWEL OR BLADDER CONTROL OR SADDLE ANESTHESIA. Time of 1ST Reevaluation: 02:44 Reevaluation 1ST: Unchanged Time of 2ND Reevaluation: 04:58 Reevaluation 2ND: Improved Patient Education/Counseling: Diagnosis, Treatment, Need For Follow Up Family Education/Counseling: No Family Present SEPSIS Sepsis Screen Date sepsis recognized/suspect: Jul 16, 2025 Time Sepsis recognized/suspect: 0242 Recent Procedure: No On Antibiotic Therapy: No Respiratory Rate >20: No Heart Rate >90: No Temp<36 C (96.8 F) or >38.3 C: No SBP <90 or MAP <65 mmHG: No New Acute Mental Status Change: No Is the patient on CPAP, BIPAP,: No Physician Orders Lumbar Spine 3 View (07/16/25 04:02) Vital Signs Date Time Temp Pulse Resp B/P (MAP) Pulse Ox O2 Delivery O2 Flow Rate FiO2 07/16/25 04:35 98.6 66 16 121/78 (92) 100 98.6 07/16/25 02:39 98.4 74 16 123/73 98 98.4 Medications Medications Dose Ordered Sig/Jenn Route Start Time Stop Time Status Last Admin Dose Admin Acetaminophen/ Hydrocodone Bitart 1 tab ONCE ONCE PO 07/16/25 04:15 07/16/25 04:16 DC 07/16/25 04:38 Dexamethasone Sodium Phosphate 10 mg ONCE ONCE IM 07/16/25 04:15 07/16/25 04:16 DC 07/16/25 04:38 Ketorolac Tromethamine 60 mg ONCE ONCE IM 07/16/25 04:15 07/16/25 04:16 DC 07/16/25 04:38 Departure 1 Departure Time of Disposition: 04:57 Impression: Primary Impression: Lumbar spine strain Qualified Codes: S39.012A - Strain of muscle, fascia and tendon of lower back, initial encounter Disposition: HOME / SELF CARE / HOMELESS Condition: Stable e-Prescriptions Tizanidine Hydrochloride (Tizanidine Hcl) 4 Mg Tab 4 MG PO BID PRN for 5 Days, #10 TAB Prov: JUAN CARLOS ARREAGA 07/16/25 Methylprednisolone (Medrol Dosepak) 4 Mg Kevin 4 MG PO UD for 6 Days, #21 TAB UAD Prov: JUAN CARLOS ARREAGA 07/16/25 Discharged With: Self Critical Care Note Critical Care Time?: No Stability Stability form required: JUAN CARLOS Rogers Jul 16, 2025 04:41
--- NOTE | 2025-07-16 04:51 | DVH ---
INDICATION: pain/injury COMPARISON: None TECHNIQUE: 3 views of the lumbar spine were obtained. FINDINGS: Trace levoscoliosis has its apex about the L1-L2 interspace. The lumbar vertebral alignment is otherw ise normal. The intervertebral disc spaces are well-maintained. No significant facet arthropathy is noted. No acute fracture, vertebral compression deformity or aggressive osseous lesions. Small chronic appea ring well corticated fracture fragment of the anterior inferior L3 vertebral body endplate. The paravertebral soft tissues are grossly unremarkable. IMPRESSION: 1. No acute fracture.
[2025-07-16] MEDS ORDERED: TIZA-142 PO (04:58)
[2025-07-16] MEDS ORDERED: METH4PAK PO (04:58)
[2025-07-16 05:02] VITALS: PULSE 66; RESP 16; O2SAT 100
== END 2025-07-16 05:02 | disposition home or self-care (01) ==
LOC: ER 02:29
DX: S39.012A Strain of muscle, fascia and tendon of lower back, initial encounter (principal); W07.XXXA Fall from chair, initial encounter; Y93.89 Activity, other specified; Y92.89 Other specified places as the place of occurrence of the external cause; Y99.8 Other external cause status
CPT/HCPCS: 72100; 96372; 99284; J1100; J1885

== ENCOUNTER 2025-09-16 11:57 | Emergency (ER) | payer MEDICAID, OTHER ==
[~2025-09-16] VITALS: Ht 167.6 cm; Wt 65.2 kg
--- NOTE | 2025-09-16 13:02 | ED.PDOC ---
Keren. trauma (HPI) HPI Comments This is a 45 year old female with no past medical history who presenting to the ED with chief complaint of fall injury. Patient reports that she had tried to sit on a high stool in her kitchen when she had missed it, causing her to fall and hit her left ribs and head against the ground yesterday. Patient relays that she did strike her head and lose consciousness for a few seconds as she was on the phone with her friend who had tried to wake her up over the phone. Patient states that since then she has been experiencing left sided rib pain with associated neck pain, SOB, and pain with deep inspirations. Patient denies any numbness, weakness, tingling, chest pain, dizziness, or further injuries. She denies any anticoagulation use. Chief Complaint: Rib Pain Time Seen by MD: 12:58 Reviewed notes: Nurses Notes, Medications, Allergies Allergies: Coded Allergies: NO KNOWN ALLERGIES (Unverified , 01/07/21) Home Meds Active Scripts Hydroxyzine Pamoate (Hydroxyzine Pamoate) 50 Mg Cap, 1 CAP PO TID PRN, #90 CAP 1 Refill Prov:LATRICE CAMARA MD 05/07/25 Reported Medications Levothyroxine Sodium (Levothyroxine Sodium) 50 Mcg Tab, 50 MCG PO QAM for PT for 30 Days, MCG 12/08/20 Information Source: Patient Mode of Arrival: Ambulatory Severity: Moderate Timing: Days Duration: Since onset Prehospital treatment: None Location: Head, Neck, Other (Lt ribs) Location of neck pain: (R) Medial, (L) Medial Location of laceration: None Mechanism: Fall Past Medical History PAST MEDICAL HISTORY: Thyroid Surgical History: Denies all surgeries AN/SQQ 89(V)15 SONAR SYSTEM JOURNEYMAN History: No Pertinent AN/SQQ 89(V)15 SONAR SYSTEM JOURNEYMAN History Family History Family History: Reviewed,noncontributory to illness Social History Smoker: Non-Smoker Alcohol: Denies ETOH Use Drugs: Denies Drug Use Lives In: Home Constitutional: denies: chills, diaphoresis, fatigue, fever, malaise, sweats, weakness, others EENTM: denies: blurred vision, double vision, ear bleeding, ear discharge, ear drainage, ear pain, ear ringing, eye pain, eye redness, hearing loss, mouth pain, mouth swelling, nasal discharge, nose bleeding, nose congestion, nose pain, photophobia, tearing, throat pain, throat swelling, voice changes, others Respiratory: reports: shortness of breath; denies: cough, hemoptysis, orth opnea, SOB at rest, SOB with excertion, stridor, wheezing, others Cardiovascular: denies: chest pain, dizzy spells, diaphoresis, Dyspnea on exertion, edema, irregular heart beat, left arm pain, lightheadedness, palpitations, PND, syncope, others Gastrointestinal: denies: abdomen distended, abdominal pain, blood streaked bowels, constipated, diarrhea, dysphagia, difficulty swallowing, hematemesis, melena, nausea, poor appetite, poor fluid intake, rectal bleeding, rectal pain, vomiting, others Genitourinary: denies: abnormal vagina bleeding, burning, dyspareunia, dysuria, flank pain, frequency, hematuria, incontinence, pain, , vagina discharge, urgency, others Neurological: denies: dizziness, fainting, headache, left sided numbness, left sided weakness, numbness, paresthesia, pre-existing deficit, right sided numbness, right sided weakness, seizure, speech problems, tingling, tremors, weakness, others Musculoskeletal: reports: neck pain, others (Rib pain); denies: back pain, gout , joint pain, joint swelling, muscle pain, muscle stiffness Integumetry: denies: bruises, change in color, change in hair/nails, dryness, laceration, lesions, lumps, rash, wounds, others Allergic/Immunocompromised: denies: Difficulty Healing, Frequent Infections, Hives, Itching, others Hematologic/Lymphatic: denies: anemia, blood clots, easy bleeding, easy bruising, swollen glands, others Endocrine: denies: excessive hunger, excessive sweating, excessive thirst, excessive urination, flushing, intolerance to cold, intolerance to heat, unexplained weight gain, unexplained weight loss, others Psychiatric: denies: anxiety, bipolar disorder, depression, hopeless, panic disorder, schizophrenia, sleepless, suicidal, others All Other Systems: Reviewed and Negative Physical Exam General Appearance: No Apparent Distress, Normal HEENT: Normal ENT Inspection, Pharynx Normal, TMs Normal Neck: Full Range of Motion, Non-Tender, Normal, Normal Inspection Respiratory: Chest Non-Tender, Lungs Clear, No Accessory Muscle Use, No Respiratory Distress, Normal Breath Sounds Cardiovascular: No Edema, No JVD, No Murmur, No Gallop, Normal Peripheral Pulses, Regular Rate/Rhythm Breast Exam: Deferred Gastrointestinal: No Organomegaly, Non Tender, No Pulsatile Mass, Normal Bowel Sounds, Soft Genitalia: Deferred Pelvic: Deferred Rectal: Deferred Extremities: No calf tenderness, Normal capillary refill, Normal inspection, Normal range of motion, Non-tender, No pedal edema Musculoskeletal : Location: Left Extremity Location: Other (Ribs) Apperance: Tenderness (Left anterior lower ribs tender to palpation. Midline cervical tenderness.) Neurologic: Alert, wire spiral binder II-XII nml as Tested, No Motor Deficits, Normal Affect, Normal Mood, No Sensory Deficits Cerebellar Function: Normal Reflexes: Normal Skin: Dry, Normal Color, Warm Lymphatic: No Adenopathy Was a procedure done? Was a procedure done?: No Differential Diagnosis Multiple Trauma: Closed Head Injury, Fractures, Pneumothorax, Cerebral Contusion, Pulmonary Contusion, Spine Injury, Contusion, Hematoma Neck Injury: Cervical Muscle Spasm, Cervical Sprain, Cervical Strain, Cervical Fracture X-Ray, Labs, Meds, VS Vital Signs Date Time Temp Pulse Resp B/P (MAP) Pulse Ox O2 Delivery O2 Flow Rate FiO2 09/16/25 12:00 97.8 106 18 116/75 99 97.8 X-Ray, Labs, Meds, VS Comment Patient presents after accidentally fell off stool yesterday, now complaining of neck pain and left rib pain. No external signs of trauma, however patient is splinting and holding her ribs with deep breath. CT head to evaluate for intracranial hemorrhage, large mask making work, fracture CT cervical spine to evaluate for fracture or dislocation Chest x-ray to evaluate for pneumonia, pneumothorax, volume overload Rib x-ray to evaluate for fracture or dislocation Lidocaine patch for pain control Re-evaluation Social determinant surveillance affecting care: Social determinants of health that will affect the patient's care: Poor health literacy (additional time provided an explanation) Poor access to outpatient care/followup (provided outpatient resources) Time of 1ST Reevaluation: 13:30 Reevaluation 1ST: Unchanged Patient Education/Counseling: Diagnosis, Treatment Family Education/Counseling: No Family Present Departure 1 Departure Time of Disposition: 14:26 (On reassessment, patient found to have 3 rib fractures. Discussed with patient pain control at home and incentive spirometry. Will discharge with p.oBettina Ching. Given strict return precautions and can be followed.) Impression: Primary Impression: Blunt head trauma Additional Impressions: Accidental fall Ribs, multiple fractures Acute dyspnea Cervical strain, acute Disposition: HOME / SELF CARE / HOMELESS Condition: Stable Additional Instructions: You broke 3 ribs today. Take your medications as prescribed. Continue taking deep breaths to avoid complications of your fractures. e-Prescriptions Naproxen (NAPROSYN TABLET) 500 Mg Tb 1 TAB PO BID PRN for 7 Days, #14 TAB 1 Refill Prov: TIKA MAS MD 09/16/25 Discharged With: Self Critical Care Note Critical Care Time?: No Stability Stability form required: No Heart Score Heart Score: Heart Score Response (Comments) Value History N/A 0 EKG N/A 0 Age N/A 0 Risk Factors N/A 0 Troponin N/A 0 Total 0 I personally scribed for TIKA MAS MD ([email or web address]) on 09/16/25 at 13:02. Electronically submitted by Efra Leung ([email or web address]). TIKA MAS MD Sep 16, 2025 13:02
--- NOTE | 2025-09-16 13:33 | DVH ---
CT HEAD WITHOUT CONTRAST INDICATION: fall EXAM DATE: 09/16/2025 01:00 PM COMPARISON: None RADIATION DOSE: CTDIvol: 49 mGy, DLP: 784 mGy*cm PROCEDURE: CT scans of the head were obtained from the vertex to the skull base. Sagittal and coronal reconstructions were provided. All CT scans at this medical facility are performed using dose modulation techniques as appropriate to a performed exam including the following: Automated exposure control was utilized; adjustment of the MA and/or KV according to patient size; and use of iterative reconstruction technique. FINDINGS: There is sulcal and ventricular prominence. The brainshows normal morphology and crwoley-white matter differentiation, without intracranial hemorrhage, extra-axial fluid collection, mass effect or acute large vessel infarct. The ventricles are normal in size. The basal cisterns are patent. The skull and visible facial bones are intact. The paranasal sinuses, mastoid air cells and middle ear cavities are well-aerated. The soft tissues of the scalp are unremarkable. IMPRESSION: No acute intracranial abnormality.
--- NOTE | 2025-09-16 13:36 | DVH ---
Indication: fall Technique: CT axial images of the cervical spine are obtained without contrast. Coronal and sagittal reformats were obtained. Radiation Dose Information: CTDI volume is 17.65 mGy. Dose-length product is 462.23 mGy*cm Comparison: None FINDINGS: The cervical vertebral body heights are maintained. Straightening of normal cervical spine curvature. There is moderate multilevel disc space narrowing. No prevertebral edema. Facet articulations are in tact. . The atlantooccipital, atlantoaxial articulations are intact. IMPRESSION: Moderate cervical degenerative disc disease.
--- NOTE | 2025-09-16 13:49 | DVH ---
CLINICAL INDICATION: fall TECHNIQUE: 5 radiographic views of the left ribs were obtained. Comparison: None FINDINGS/IMPRESSION: Minimally displaced fracture left 7th, 8th and 9th rib. No pleural effusion no pneumothorax
[2025-09-16] MEDS ORDERED: HYDR-4902 PO (14:28)
[2025-09-16] MEDS ORDERED: NAP500T PO ×2 (14:29→18:30)
[2025-09-16] MEDS: LIDOCAINE 5% TOPICAL PATCH TOP ONE (15:00)
[2025-09-16 15:05] VITALS: BP 97/56; PULSE 87; RESP 19; TEMP 98.9; O2SAT 100
[2025-09-16] MEDS ORDERED: HYDR50TA32 PO (18:30)
[2025-09-16] MEDS ORDERED: LEVO-848 PO (18:30)
== END 2025-09-16 15:14 | disposition home or self-care (01) ==
LOC: ER 11:57
DX: S22.42XA Multiple fractures of ribs, left side, initial encounter for closed fracture (principal); S16.1XXA Strain of muscle, fascia and tendon at neck level, initial encounter; S09.90XA Unspecified injury of head, initial encounter; W19.XXXA Unspecified fall, initial encounter; Y93.89 Activity, other specified; Y92.89 Other specified places as the place of occurrence of the external cause; Y99.8 Other external cause status
CPT/HCPCS: 70450; 71101; 72125